=== PATIENT | male | born 1975 | race Caucasian/White ===

== ENCOUNTER 2017-03-14 23:53 | Inpatient (IN) | payer SELFPAY ==
[~2017-03-14] VITALS: Ht 177.8 cm; Wt 101.0 kg
[2017-03-14 23:58] VITALS: BP 154/90; PULSE 75; RESP 16; TEMP 98.8; O2SAT 98
[2017-03-15 03:11] VITALS: BP 148/92; PULSE 67; RESP 14; O2SAT 98
[2017-03-15] MEDS ORDERED: LORazepam 2 MG/ML VIAL IV PUSH ONE (03:15)
[2017-03-15] MEDS ORDERED: SODIUM CHLORIDE 0.9% FLUSH 10 ML FLUSH IVF PRN (03:15)
[2017-03-15] MEDS ORDERED: ASPIRIN 81 MG CHEW TAB PO ONE (03:15)
--- NOTE | 2017-03-15 03:42 | RADRPT ---
EXAM DATE/TIME: 03/15/2017 03:25 [facility] COMPARISON: No previous studies available for comparison. INDICATIONS : Cephalgia. RADIATION DOSE: 56.35 CTDIvol (mGy) MEDICAL HISTORY : None SURGICAL HISTORY : None. ENCOUNTER: Initial ACUITY: 1 day PAIN SCALE: 2/10 LOCATION: cranial TECHNIQUE: Multiple contiguous axial images were obtained of the head. Using automated exposure control and adj ustment of the mA and/or kV according to patient size, radiation dose was kept as low as reasonably a chievable to obtain optimal diagnostic quality images. FINDINGS: CEREBRUM: The ventricles are normal for age. No evidence of midline shift, mass lesion, hemorrhage or acute in farction. No extra-axial fluid collections are seen. POSTERIOR FOSSA: The cerebellum and brainstem are intact. The 4th ventricle is midline. The cerebellopontine angle i s unremarkable. EXTRACRANIAL: The visualized portion of the orbits is intact. SKULL: The calvaria is intact. No evidence of skull fracture. CONCLUSION: Normal examination. Dakota Cervantes MD on March 15, 2017 at 3:40 Board Certified Radiologist. This report was verified electronically.
[2017-03-15 03:49] LABS: AUTOMATED NEUTROPHIL # 5.4 TH/MM3 (1.8-7.7); BASOPHIL # 0.1 TH/MM3 (0-0.2); BASOPHIL % 0.7 % (0.0-2.0); EOSINOPHIL # 0.5 TH/MM3 (0-0.4); EOSINOPHIL % 4.2 % (0.0-4.0); HEMATOCRIT 43.8 % (39.0-51.0); HEMO FLAGS DIFF FINAL; LYMPH % 39.9 % (9.0-44.0); LYMPHOCYTE # 4.4 TH/MM3 (1.0-4.8); MEAN CELL VOLUME 88.9 FL (80.0-100.0); MEAN CORPUSCULAR HEMOGLOBIN 30.9 PG (27.0-34.0); MEAN CORPUSCULAR HGB CONC 34.7 % (32.0-36.0); MONO % 6.4 % (0.0-8.0); NEUT % 48.8 % (16.0-70.0); PLATELET COUNT 382 TH/MM3 (150-450); RED BLOOD COUNT 4.93 MIL/MM3 (4.50-5.90); RED CELL DISTRIBUTION WIDTH 13.7 % (11.6-17.2); WHITE BLOOD COUNT 11.1 TH/MM3 (4.0-11.0)
--- NOTE | 2017-03-15 03:56 | PD ---
HPI . Panic attack Chief Complaint: Psychiatric Symptoms Time Seen by Provider: 03:03 Travel History International Travel<30 days: No Contact w/Intl Traveler<30days: No Traveled to known affect area: No History of Present Illness HPI Patient presents complaining of severe anxiety. He states that his symptoms have been escalating over the course of last couple weeks. He reports insomnia alternating with hypersomnolence. He states that he is always anxious. He feels very stressed. He reports poor concentration. He denies any suicidal ideation. Symptoms have been exacerbated by stressful events in his life. He reports no relieving factors. He states that his current symptoms are quite severe. [facility] Past Medical History Anxiety: Yes Immunizations Current: Yes Ulcer: Yes (renal stones) Past Surgical History Other Surgery: Yes (bilateral stents in kidneys) Social History Alcohol Use: No Tobacco Use: No Substance Use: Yes (marijuana) Allergies-Medications (Allergen,Severity, Reaction): Coded Allergies: No Known Allergies (Unverified , 03/15/17) Reported Meds & Prescriptions Reported Meds & Active Scripts Active No Active Prescriptions or Reported Medications Review of Systems Except as stated in HPI: all other systems reviewed are Neg HENT: Positive: Headaches Cardiovascular: Positive: Chest Pain or Discomfort, Palpitations Respiratory: Positive: Shortness of Breath Psychiatric: Positive: Anxiety, Depression, No: Suicidal Ideations, Substance Abuse, Homicidal Ideation Physical Exam Narrative GENERAL: Patient is very anxious appearing. He is tearful. He was tremulous. SKIN: Warm and dry. HEAD: Atraumatic. Normocephalic. EYES: Pupils equal and round. Extraocular movements are intact. ENT: No nasal bleeding or discharge. Mucous membranes pink and moist. NECK: Trachea midline. Neck is supple. CARDIOVASCULAR: Regular rate and rhythm. Heart sounds are normal. RESPIRATORY: No accessory muscle use. Lungs are clear with full air movement throughout. GASTROINTESTINAL: Abdomen soft, non-tender, nondistended. MUSCULOSKELETAL: No obvious deformities. No edema. NEUROLOGICAL: Awake and alert. No obvious cranial nerve deficits. Motor grossly within normal limits. Normal speech. PSYCHIATRIC: Anxious and tearful. Data Data Last Documented VS Vital Signs Date Time Temp Pulse Resp B/P Pulse Ox O2 Delivery O2 Flow Rate FiO2 03/15/17 03:18 69 12 03/15/17 03:11 148/92 98 Room Air 03/14/17 23:58 98.8 Orders Basic Metabolic Panel (Bmp) (03/15/17 03:03) Ckmb (Isoenzyme) Profile (03/15/17 03:03) Complete Blood Count With Diff (03/15/17 03:03) Troponin I (03/15/17 03:03) Chest, Single Ap (03/15/17 03:03) Ecg Monitoring (03/15/17 03:03) Iv Access Insert/Monitor (03/15/17 03:03) Oximetry (03/15/17 03:03) Aspirin Chew (Aspirin Chew) (03/15/17 03:15) Sodium Chloride 0.9% Flush (Ns Flush) (03/15/17 03:15) Lorazepam Inj (Ativan Inj) (03/15/17 03:15) Ct Brain W/O Iv Contrast(Rout) (03/15/17 03:03) Al-Mag Hy-Si 40-40-4 Mg/Ml Liq (Mag-Al P (03/15/17 04:45) Lidocaine 2% Viscous (Xylocaine 2% Visco (03/15/17 04:45) Psych Screen (03/15/17 04:48) Labs Laboratory Tests Test 03/15/17 03:30 White Blood Count 11.1 TH/MM3 Red Blood Count 4.93 MIL/MM3 Hemoglobin 15.2 GM/DL Hematocrit 43.8 % Mean Corpuscular Volume 88.9 FL Mean Corpuscular Hemoglobin 30.9 PG Mean Corpuscular Hemoglobin 34.7 % Concent Red Cell Distribution Width 13.7 % Platelet Count 382 TH/MM3 Mean Platelet Volume 8.1 FL Neutrophils (%) (Auto) 48.8 % Lymphocytes (%) (Auto) 39.9 % Monocytes (%) (Auto) 6.4 % Eosinophils (%) (Auto) 4.2 % Basophils (%) (Auto) 0.7 % Neutrophils # (Auto) 5.4 TH/MM3 Lymphocytes # (Auto) 4.4 TH/MM3 Monocytes # (Auto) 0.7 TH/MM3 Eosinophils # (Auto) 0.5 TH/MM3 Basophils # (Auto) 0.1 TH/MM3 CBC Comment DIFF FINAL Differential Comment Sodium Level 143 MEQ/L Potassium Level 3.8 MEQ/L Chloride Level 107 MEQ/L Carbon Dioxide Level 27.3 MEQ/L Anion Gap 9 MEQ/L Blood Urea Nitrogen 10 MG/DL Creatinine 1.05 MG/DL Estimat Glomerular Filtration 78 ML/MIN Rate Random Glucose 105 MG/DL Calcium Level 8.9 MG/DL Total Creatine Kinase 68 U/L Troponin I LESS THAN 0.02 NG/ML MDM Medical Decision Making Medical Screen Exam Complete: Yes Emergency Medical Condition: Yes Interpretation(s) EKG shows a normal sinus rhythm with no acute ischemic change. Differential Diagnosis Differential diagnosis includes but is not limited to anxiety, ACS, electrolyte disturbance Narrative Course Patient presents complaining with anxiety. He has chest pain, palpitations, shortness of breath or headaches. He is interesting in talking with psychiatry. I will rule out a medical issue and then consult psych triage. CBC & BMP Diagram 03/15/17 03:30 Troponin is less than 0.02. Last Impressions Head CT 03/15/17302 Signed Impressions: Service Date/Time: Wednesday, March 15, 2017 03:25 - CONCLUSION: Normal examination. Dakota Cervantes MD Chest X-Ray 03/15/17302 Signed Impressions: Service Date/Time: Wednesday, March 15, 2017 04:21 - CONCLUSION: Normal examination. Dakota Cervantes MD The chest x-ray was independently viewed by me. The patient has been evaluated by the psych screener. He will be evaluated by a psychiatrist in the morning. Diagnosis Primary Impression: Chest pain Qualified Code: R07.9 - Chest pain, unspecified type Additional Impressions: Headache Qualified Code: G44.219 - Episodic tension-type headache, not intractable Anxiety Scripts No Active Prescriptions or Reported Meds Condition: Stable Olga Murillo MD Mar 15, 2017 03:56
[2017-03-15 04:25] LABS: ANION GAP 9 MEQ/L (5-15); BICARBONATE 27.3 MEQ/L (21.0-32.0); BLOOD UREA NITROGEN 10 MG/DL (7-18); CHLORIDE 107 MEQ/L (98-107); GLOMERULAR FILTRATION RATE 78 ML/MIN (>89); POTASSIUM 3.8 MEQ/L (3.5-5.1); SODIUM (NA) 143 MEQ/L (136-145)
[2017-03-15 04:27] LABS: CREATINE KINASE 68 U/L (39-308)
[2017-03-15] MEDS ORDERED: LIDOCAINE VISCOUS 2% SOLN 15 ML UDC PO ONE (04:45)
[2017-03-15] MEDS ORDERED: ALUMINUM/MAGNESIUM/SIMETH 30 ML CUP PO ONE (04:45)
--- NOTE | 2017-03-15 05:04 | RADRPT ---
EXAM DATE/TIME: 03/15/2017 04:21 [facility] COMPARISON: No previous studies available for comparison. INDICATIONS : Chest pain. MEDICAL HISTORY : None. SURGICAL HISTORY : None. ENCOUNTER: Initial ACUITY: 3 weeks PAIN SCORE: 5/10 LOCATION: chest FINDINGS: A single view of the chest demonstrates the lungs to be symmetrically aerated without evidence of mas s, infiltrate or effusion. The cardiomediastinal contours are unremarkable. Osseous structures are intact. CONCLUSION: Normal examination. Dakota Cervantes MD on March 15, 2017 at 5:03 Board Certified Radiologist. This report was verified electronically.
[2017-03-15 07:14] VITALS: BP 120/83; PULSE 63; RESP 20; O2SAT 96
[2017-03-15] MEDS ORDERED: ALUMINUM/MAGNESIUM/SIMETH 30 ML CUP PO PRN (13:30)
[2017-03-15] MEDS ORDERED: ACETAMINOPHEN 325 MG TAB PO PRN (13:30)
[2017-03-15] MEDS ORDERED: LORazepam 0.5 MG TAB PO PRN (13:30)
[2017-03-15] MEDS ORDERED: MAGNESIUM HYDROXIDE SUSP 30 ML CUP PO PRN (13:30)
[2017-03-15] MEDS ORDERED: LORazepam 2 MG/ML VIAL IM PRN (13:30)
--- NOTE | 2017-03-15 13:39 | HHI.HP ---
Provisional Diagnosis Admission Date [place] I. Adjustment disorder with mixed disturbance of emotions and conduct Certification of Person's Competence To Provide Express and Informed Consent I have personally examined Luan Jimenes , a person being served at [facility] on, Mar 15, 2017 13:31. Express and informed consent means consent voluntarily given in writing, by a competent person, after sufficient explanation and disclosure of the subject matter involved to enable the person to make a knowing and willful decision without any element of force, fraud, deceit, duress, or other form of constraint or coercion. This person is 18 years of age or older, is not now known to be incompetent to consent to treatment with a guardian advocate, and does not have a health care surrogate or proxy currently making medical treatment decisions. I have found this person to be one of the following: [X] Competent to provide express and informed consent, as defined above, for voluntary admission to this facility and is competent to provide express and informed consent for treatment. He/she has the consistent capacity to make well reasoned, willful, and knowing decisions concerning his or her medical or mental health treatment. The person fully and consistently understands the purpose of the admission for examination/placement and is fully capable of personally exercising all rights assured [place] Incompetent to provide express and informed consent to voluntary admission, and this is incompetent to provide express and informed consent to treatment. The person must be transferred to involuntary status and a petition for a guardian advocate filed with the Circuit Court. [] Refusing to provide express and informed consent to voluntary admission but is competent to provide express and informed consent for treatment. The person must be discharged or transferred to involuntary status. Form shall be completed within 24 hours of a person's arrival at the receiving facility and filed in the clinical record of each person: 1. Admitted on a voluntary basis 2. Permitted to provide express and informed consent to his/her own treatment 3. Allowed to transfer from involuntary to voluntary status 4. Prior to permitting a person to consent to his or her own treatment after having been previously found incompetent to consent to treatment. History of Present Illness Capacity: Has Capacity HPI This is a 41-year-old male with a 3 week history of increasing symptoms of depression. The patient learned that his girlfriend of 14 years is to an [email or web address] pilot as of 3 weeks ago. She kept this fact from him even though she was in 2014. The patient has become markedly distressed and depressed since that time. He does describe symptoms of suicidal ideation, depressed mood, anhedonia, social withdrawal, diminished energy, decreased self- esteem, insomnia, hypersomnia, decreased appetite, loss of concentration, and panic attacks. He is unable to contract for safety at this time and wishes that God would take him from this earth. He knows multiple ways to harm himself including overdose on medication and driving his car into a tree. He continues to live with his girlfriend but their relationship has become extremely strained. He is unable to function on the job and he is unable to find relief from his symptoms. Review of Systems ROS Limitations: Clinical Condition Past Psych History Psychological trauma history Patient was placed in foster care when he was growing up. Violence risk - others (6 mos) Minimal to moderate Violence risk - self (6 mos) Moderate Substance Abuse History Drugs/Alcohol past 12 months Denied Past Family Social History Coded Allergies: No Known Allergies (Unverified , 03/15/17) No Active Prescriptions or Reported Meds Current Medications Medications (Trade) Dose Ordered Sig/Shaheen Route Start Time Stop Time Status Last Admin (NS Flush) 2 ml UNSCH PRN IVF 03/15/17 03:15 Family History Patient reports he has a family history of schizophrenia but he does not believe he has ever been diagnosed or qualifies for that diagnosis. 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 He does not drink, smoke or take drugs. He is not . He does have 2 grown children. Patient's Strengths (min. 2) Verbal and resilient. Physical Exam GENERAL: SKIN: Warm and dry. HEAD: Normocephalic. EYES: No scleral icterus. No injection or drainage. NECK: Supple, trachea midline. No JVD or lymphadenopathy. CARDIOVASCULAR: Regular rate and rhythm without murmurs, gallops, or rubs. RESPIRATORY: Breath sounds equal bilaterally. No accessory muscle use. GASTROINTESTINAL: Abdomen soft, non-tender, nondistended. MUSCULOSKELETAL: No cyanosis, or edema. BACK: Nontender without obvious deformity. No CVA tenderness. Vital Signs Vital Signs Date Time Temp Pulse Resp B/P Pulse Ox O2 Delivery O2 Flow Rate FiO2 03/15/17 07:14 20 96 Room Air 03/15/17 07:14 63 120/83 03/14/17 23:58 98.8 Mental Status Examination Speech: Unremarkable Orientation: x3 Memory: Unremarkable Thought Process: Organized, Goal Directed Thought Content: Unremarkable Hallucination Type: None Attention and Concentration: Good Suicidal Ideation: Yes Previous Suicide Attempts: No Homicidal Ideation: No Previous Homicide Attempts: No Insight: Fair Judgment: Unrealistic Affect: Good, Anxious, Sad Mood: Appropriate, Sad, Anxious Motor Activity: Normal gait Assessment & Plan Problem List: (1) Adjustment disorder with mixed disturbance of emotions and conduct ICD Code: F43.25 Assessment & Plan Estimated LOS: 3 days patient is a extremely distraught 41-year-old man who recently learned that his girlfriend of 14 years has been to another man. He presents with multiple symptoms of depression 3 weeks and suicidal ideation with various plans. He is unable to sleep and he wishes God would take his life. At this time the patient is felt to be at high risk for self- harm. He will be admitted voluntarily for evaluation and treatment. I have ordered an EKG to evaluate him for antidepressant therapy. He will also be engaged in individual and group therapies. It is anticipated he'll be in the hospital for 3 days. Domenico Finch MD Mar 15, 2017 13:39
--- NOTE | 2017-03-15 14:51 | EKG ---
Date Performed: 03/15/2017 Time Performed: 03:04:21 PTAGE: 41 years EKG: Sinus rhythm NORMAL ECG NO PREVIOUS TRACING DOCTOR: Constantin Chu Interpretating Date/Time 03/15/2017 14:49:19
[2017-03-15 16:44] VITALS: BP 139/86; PULSE 56; RESP 18; TEMP 98.2; O2SAT 98
[2017-03-15] MEDS ORDERED: traZODone HCL 50 MG TAB PO PRN (21:00)
[2017-03-15] MEDS: REMOVE OLD NICODERM (NICOTINE) PATCH T-DERMAL SCH (21:00)
[2017-03-16 06:07] VITALS: BP 162/84; PULSE 67; RESP 18; TEMP 98; O2SAT 98
[2017-03-16 07:50] LABS: ANION GAP 7 MEQ/L (5-15); BLOOD UREA NITROGEN 10 MG/DL (7-18); CHLORIDE 103 MEQ/L (98-107); GLOMERULAR FILTRATION RATE 71 ML/MIN (>89); HDL CHOLESTEROL 37.7 MG/DL (40.0-60.0); LDL CHOLESTEROL 181 MG/DL (0-99); POTASSIUM 3.7 MEQ/L (3.5-5.1); SODIUM (NA) 139 MEQ/L (136-145)
[2017-03-16] MEDS: NICOTINE 21 MG/24 HR PATCH T-DERMAL SCH (08:58)
--- NOTE | 2017-03-16 10:42 | HHI.PYPN ---
Subjective Remarks Patient continues to demonstrate depressed mood and depressed affect. He continues to have suicidal ideation but is willing to verbally contract for safety. He is also willing to start Prozac for treatment of his anxiety and depression. He would like to be discharged as soon as possible to go back to work. This physician states we will evaluate him and observe him today and if possible he may be discharged tomorrow. Review of Systems ROS Limitations: Clinical Condition Objective Alert: Yes [place]: Person, Place, Date, Situation Mood: Depressed Affect: Restricted Memory Intact: Immediate, Recent, Remote Hallucinations: Other Delusions: No Delusion Type: Other Suicidal: Ideation Homicidal: Ideation Insight/Judgment Impaired but improving. Labs Test 03/16/17 06:48 Sodium Level 139 MEQ/L Potassium Level 3.7 MEQ/L Chloride Level 103 MEQ/L Carbon Dioxide Level 29.0 MEQ/L Anion Gap 7 MEQ/L Blood Urea Nitrogen 10 MG/DL Creatinine 1.14 MG/DL Estimat Glomerular Filtration 71 ML/MIN Rate Random Glucose 100 MG/DL Calcium Level 9.0 MG/DL Triglycerides Level 200 MG/DL Cholesterol Level 259 MG/DL LDL Cholesterol 181 MG/DL HDL Cholesterol 37.7 MG/DL Cholesterol/HDL Ratio 6.87 RATIO Vitals/IOs Vital Signs Date Time Temp Pulse Resp B/P Pulse Ox O2 Delivery O2 Flow Rate FiO2 03/16/17 06:07 98.0 67 18 162/84 98 03/15/17 07:14 Room Air Assessment & Plan Problem List: (1) Adjustment disorder with mixed disturbance of emotions and conduct ICD Code: F43.25 Assessment & Plan Estimated LOS: 24-48 hours days will start Prozac and if patient tolerates medication and remains fairly stable will consider discharge tomorrow. Justification for Cont. Inpt. Recent breakup with suicidal thinking. Domenico Finch MD Mar 16, 2017 10:42
[2017-03-16] MEDS: FLUoxetine HCL 10 MG CAP PO SCH (11:36)
[2017-03-16 17:22] LABS: HEMOGLOBIN A1b 1.7 %; HEMOGLOBIN Ao 86.3 %; HEMOGLOBIN LA1C 1.8 %; HEMOGLOBIN P3 3.5 %
[2017-03-16 19:00] VITALS: BP 143/91; PULSE 69; RESP 18; TEMP 99.1; O2SAT 99
[2017-03-16] MEDS: REMOVE OLD NICODERM (NICOTINE) PATCH T-DERMAL SCH (21:00)
[2017-03-17 06:00] VITALS: BP 123/85; PULSE 78; RESP 20; TEMP 97.6; O2SAT 96
[2017-03-17] MEDS: NICOTINE 21 MG/24 HR PATCH T-DERMAL SCH (09:00)
[2017-03-17] MEDS: FLUoxetine HCL 10 MG CAP PO SCH (09:12)
--- NOTE | 2017-03-17 09:22 | HHI.DS ---
Psychiatry Discharge Summary Inpatient Psychiatric care?: Yes Advance Directive: No Reason Not Provided: Due to Patient Condition Mental Health AdvanceDirective: No Health Care Proxy: No Admission Admission Date Mar 15, 2017 at 13:29 Admission Diagnosis: (1) Adjustment disorder with mixed disturbance of emotions and conduct ICD Code: F43.25 Brief History This is a 41-year-old male with a 3 week history of increasing symptoms of depression. The patient learned that his girlfriend of 14 years is to an [employer] pilot as of 3 weeks ago. She kept this fact from him even though she was in 2014. The patient has become markedly distressed and depressed since that time. He does describe symptoms of suicidal ideation, depressed mood, anhedonia, social withdrawal, diminished energy, decreased self- esteem, insomnia, hypersomnia, decreased appetite, loss of concentration, and panic attacks. He is unable to contract for safety at this time and wishes that God would take him from this earth. He knows multiple ways to harm himself including overdose on medication and driving his car into a tree. He continues to live with his girlfriend but their relationship has become extremely strained. He is unable to function on the job and he is unable to find relief from his symptoms. Tobacco Use In Past 30 Days: No Tobacco Past 30 Days Alcohol Use: Never Hospital Course Patient participated in individual and group therapies. His mood and affect improved dramatically. He was started on Prozac and did well on this medicine. No procedures were performed. At the time of discharge she was stable and wanting to go back to work. Results Blood Pressure 123 / 85 Vital Signs Date Time Temp Pulse Resp B/P Pulse Ox O2 Delivery O2 Flow Rate FiO2 03/17/17 06:00 97.6 78 20 123/85 96 03/15/17 07:14 Room Air Laboratory Tests Test 03/15/17 03/16/17 03:30 06:48 White Blood Count 11.1 TH/MM3 (4.0-11.0) Eosinophils (%) (Auto) 4.2 % (0.0-4.0) Eosinophils # (Auto) 0.5 TH/MM3 (0-0.4) Estimat Glomerular Filtration 78 ML/MIN (>89) 71 ML/MIN (>89) Rate Troponin I LESS THAN 0.02 NG/ML (0.02-0.05) Triglycerides Level 200 MG/DL (42-150) Cholesterol Level 259 MG/DL (120-200) LDL Cholesterol 181 MG/DL (0-99) HDL Cholesterol 37.7 MG/DL (40.0-60.0) Laboratory Results Test 03/16/17 06:48 Hemoglobin A1c 5.2 % (4.3-6.0) Triglycerides Level 200 MG/DL (42-150) Cholesterol Level 259 MG/DL (120-200) LDL Cholesterol 181 MG/DL (0-99) HDL Cholesterol 37.7 MG/DL (40.0-60.0) Summary of Procedures None Imaging Last Impressions Head CT 03/15/17302 Signed Impressions: Service Date/Time: Wednesday, March 15, 2017 03:25 - CONCLUSION: Normal examination. Dakota Cervantes MD Chest X-Ray 03/15/17302 Signed Impressions: Service Date/Time: Wednesday, March 15, 2017 04:21 - CONCLUSION: Normal examination. Dakota Cervantes MD Pending results at discharge: No Medications # of Antipsychotic meds at D/C: 0 Approp Antipsych med options 1 - Minimum of three failed multiple trials of monotherapy. 2 - Documented plan to taper to monotherapy due to previous use of multiple meds OR cross-taper in progress at D/C. 3 - Documentation of augmentation of Clozapine. 4 - Justification other than those listed in allowable values 1-3, document here : Discharge Discharge Date: Mar 17, 2017 Discharge Diagnosis: (1) Adjustment disorder with mixed disturbance of emotions and conduct Diagnosis: Principal ICD Code: F43.25 Mental Status Exam at Disch Patient's cognition is completely intact. He demonstrates no suicidal or homicidal ideation, plan or intent. He demonstrates no psychotic symptoms. He verbally contracts for safety. Insight and judgment are felt to be adequate. Pt Condition on Discharge: Stable Discharge Disposition: Discharge Home Discharge Instructions Diet Instructions: As Tolerated, No Restrictions Activities you can perform: Regular-No Restrictions Scheduled Appointment: [facility] Appointment Date: Mar 23, 2017 Appointment Time: 7:30am Discharge Time <= 30 minutes Discharge/Advance Care Plan Health Problems: (1) Adjustment disorder with mixed disturbance of emotions and conduct Goals to promote your health * To prevent worsening of your condition and complications * To maintain your health at the optimal level Directions to meet your goals Take your medications as prescribed Follow your dietary instruction Follow activity as directed Keep your appointments as scheduled Take your immunizations and boosters as scheduled If your symptoms worsen call your PCP, if no PCP go to Urgent Care Center or Emergency Room For 21/06 questions related to your inpatient stay or results of tests pending at discharge, please contact Dr. Domenico Finch at Smoking is Dangerous to Your Health. Avoid second hand smoking Domenico Finch MD Mar 17, 2017 09:22
[2017-03-17] MEDS ORDERED: PROZ20CA11 PO (09:23)
== END 2017-03-17 13:30 | disposition home or self-care (01) | DRG 882 ==
LOC: NEPC 23:53 → NEDA 03-15 13:29 → H260 03-15 14:20
PROVIDERS: ADMIT Psychiatry & Neurology Psychiatry; ATTEND Psychiatry & Neurology Psychiatry
DX: F43.25 Adjustment disorder with mixed disturbance of emotions and conduct (principal); R45.851 Suicidal ideations; F32.9 Major depressive disorder, single episode, unspecified; F41.0 Panic disorder [episodic paroxysmal anxiety]; G44.219 Episodic tension-type headache, not intractable; G47.00 Insomnia, unspecified; G47.10 Hypersomnia, unspecified
CPT/HCPCS: 70450; 71010; 80048; 80061; 82550; 83036; 84484; 85025; 93005; 96374; J2060